=== PATIENT | female | born 1975 | race Caucasian/White ===

== ENCOUNTER 2020-09-02 20:57 | Emergency (ER) | payer OTHER, SELFPAY ==
[2020-09-02 21:09] VITALS: BP 159/88; PULSE 79; RESP 14; TEMP 36.7; O2SAT 99
[2020-09-02] MEDS: AMOXICILLIN/CLAV 875/125 MG 1 TAB PO (21:22)
--- NOTE | 2020-09-02 21:50 | PC.NURSE ---
noted ulcerated area w/ white center, no drainage on left inside cheek.
--- NOTE | 2020-09-03 03:59 | ED_ITS ---
HPI - Dental/Oral General Chief complaint: Dental/Oral Stated complaint: RT CHEEK ULCER/PAIN ON RT SIDE OF FACE Time Seen by Provider: 09/02/20 21:00 Source: patient Mode of arrival: Ambulatory Limitations: no limitations History of Present Illness HPI Narrative: 44-year-old female nonsmoker presents with a chief complaint of a painful ulceration inside her right cheek over the past few days. She states that about a week ago she had injections of a base filler operator her cheeks by a specialist. She has some minimal swelling but certainly denies any significant facial swelling, lip or tongue swelling, difficulty swallowing or breathing. She has a painful ulcer in her pupil mucosa lateral to her molars. She has no fever or chills and no history of aphthous ulcers. She denies any foul taste, drainage or other systemic symptoms Teeth map: 1. Related Data Previous Rx's Medication Instructions Recorded amoxicillin 875 mg-potassium 1 tab PO BID #20 tab 09/02/20 clavulanate 125 mg tablet (Augmentin) Allergies Allergy/AdvReac Type Severity Reaction Status Date / Time acetaminophen [From Vicodin] Allergy Unknown Verified 09/02/20 21:13 hydrocodone [From Vicodin] Allergy Unknown Verified 09/02/20 21:13 Sulfa (Sulfonamide Allergy Unknown Verified 09/02/20 21:13 Antibiotics) Review of Systems Review of Systems Narrative: GENERAL: Denies chills, fatigue, malaise, fever, sweats. HEENT: See HPI RESPIRATORY: Denies dyspnea, cough, wheezing, hemoptysis, sputum. CARDIOVASCULAR: Denies chest pain, palpitations, orthopnea, edema, GASTROINTESTINAL: Denies nausea, vomiting, abdominal pain, diarrhea, constipation, melena. : Denies dysuria, frequency, incontinence, hematuria, urinary retention. MUSCULOSKELETAL: denies weakness, joint pain, or bony pain SKIN: Denies rash, skin lesions, or other NEUROLOGIC: Denies weakness, headache, numbness, change in speech, confusion, seizures, incoordination. PSYCHIATRIC: No concerning psychosocial issues. 12 point review of systems is negative except for those stated above Patient History Social History Smoking Status: Never smoker Smoking Status: Never smoker alcohol intake frequency: 0-2 drinks per day Substance Use Type: does not use Exam Narrative Exam Narrative: GEN: AOx3 and in mild distress EYES: Pupils are equal, round, and reactive to light and accommodation. Extraoccular muscles are intact bilaterally. There is no subconjunctival hemorrhage or exudate. ENT: Minimal swelling of right cheek, intraoral examination results in observation of 0.5 cm ulceration lateral to her molars on the right side, palpation of the vehicle Cozaar results in no significant swelling, induration, fluctuance or drainage. No obvious dental abscess CHEST: Lungs are clear to auscultation bilaterally and free of wheezes, rales, or rhonchi. Heart rate is regular rhythm, there are no murmurs, clicks, rubs, or gallops. There is no chest wall tenderness. ABD: Abdomen is soft and nontender. There is no guarding or rebound. Bowel sounds are normal in all 4 quadrants. There is no mass or organomegaly. EXT: Full painless ROM of all extremities with no loss of sensation or strength. SKIN: Warm, pink, and dry. No erythema or rash Initial Vital Signs Initial Vital Signs: Vital Signs Temperature 98.1 F 09/02/20 21:09 Pulse Rate 79 09/02/20 21:09 Respiratory Rate 14 09/02/20 21:09 Blood Pressure 159/88 H 09/02/20 21:09 Pulse Oximetry 99 09/02/20 21:09 Course Orders Ordered: Discontinued Medications Amoxicillin/Clavulanate Potassium (Amoxicillin/Clav 875/125 Mg) 1 tab PO NOW ONE Stop: 09/02/20 21:17 Last Admin: 09/02/20 21:22 Dose: 1 tab Documented by: CARLOS Vital Signs Vital signs: Vital Signs - 8 hr 09/02/20 21:09 Temperature 98.1 F Pulse Rate 79 Respiratory Rate 14 Blood Pressure 159/88 H Pulse Oximetry 99 MDM - Dental/Oral MDM Narrative Medical decision making narrative: Given recent instrumentation and procedure w ith injection near the site of the irritated ulcer we discussed pros and cons of antibiotics and sure the opinion that the risk of allowing a possible infection to go and treated is greater than the use of antibiotics. I did discuss the potential of gargling with Benadryl and Maalox in the event that this is merely an aphthous ulcer or the like. Patient has been given return precautions and questions have been answered to her apparent satisfaction Discharge Plan Departure Patient Disposition: Home Clinical Impression: Bacterial skin infection of mouth Activity Restrictions/Additional Instructions: *You have been diagnosed with [intraoral ulcer, bacterial infection or possible contact ulcer] *What to do: *Please continue to take your regular medications as directed. [ ] New medication prescriptions sent to your pharmacy: [ ] [x ] New medication written as a paper prescription [ ] No new medications given *Please follow up with your primary care provider in 2-3 days, call for an appointment. Let them know you were seen in the Emergency Department and that we ask that you be seen in follow up. We will electronically transmit a record of today's note if your PCP is in our system *If you do not have a primary care provider please contact the [facility] Resource line at [phone]. They will ask some questions about your medical history and help get you set up with a doctor in the community. *Return to Emergency Department if you should have any new, worsening or concerning symptoms, such as [fever greater than 101 F, shaking chills, worsening pain, persistent vomiting or other bothersome symptoms] Prescriptions: New amoxicillin-pot clavulanate [Augmentin] 875-125 mg tablet 1 tab PO BID Qty: 20 RF: 0
== END 2020-09-02 21:51 | disposition home or self-care (01) ==
PROVIDERS: Emergency Provider Emergency Medicine
DX: K12.2 Cellulitis and abscess of mouth (principal)
CPT/HCPCS: 99283